=== PATIENT | male | born 1960 | race Caucasian/White ===

== ENCOUNTER → 2018-08-28 18:32 | Outpatient (CLI) | payer BC ==
[2012-01-18 09:23] VITALS: BMI 32.6
== END | disposition home or self-care (01) ==
LOC: D.LABREF 18:32
DX: R31.9 Hematuria, unspecified (principal)

== ENCOUNTER 2019-04-23 09:47 | Inpatient (IN) | payer MEDICARE ==
[~2019-04-23] VITALS: Ht 182.9 cm; Wt 110.7 kg
--- NOTE | 2019-04-23 10:50 | NUR ---
1030-AMBULATES TO ROOM WITH DOMESTIC FREIGHT FORWARDER STAFF. LEFT SIDE OF CHEECK AND LEFT EYE ARE SWOLLEN. PUS LIKE AREA SEEN TO LEFT CHEECK. WILL ADMIT. 1051-TAMERA JAY UNABLE TO GET IV, WILL ATTEMPT.
[2019-04-23 11:01] VITALS: BP 125/71; BMI 33.1
[2019-04-23 11:39] VITALS: BP 145/88
--- NOTE | 2019-04-23 11:51 | NUR ---
CALLED LAB TO COME DRAW BLOOD CULTURES SO IV ABX CAN BE STARTED.
[2019-04-23 12:08] LABS: BASOPHILS 0.6 % (0-2); EOSINOPHILS 2.1 % (0-7); HEMOGLOBIN 15.6 g/dL (13.5-17.5); IMMATURE GRANULOCYTES 0.1 % (0-5); MCH 30.1 pg (26.0-34.0); MCHC 34.7 g/dL (31.0-37.0); MCV 86.7 fL (80.0-100.0); MEAN PLATELET VOLUME 11.3 fL (7.4-10.4); MONOCYTES 7.4 % (2-11); NEUTROPHILS 60.8 % (40-80); PLATELET COUNT 176 10x3/uL (130-400); RBC 5.19 10x6/uL (4.20-6.10); RDW 13.9 % (11.5-14.5); WBC 7.2 10x3/uL (4.8-10.8)
[2019-04-23 12:26] LABS: ANION GAP 13.6 mmol/L (8-16); CALCIUM 9.1 mg/dL (8.5-10.1); CARBON DIOXIDE 25.5 mmol/L (21.0-32.0); CREATININE - SERUM 1.1 mg/dL (0.6-1.3); POTASSIUM - SERUM 4.1 mmol/L (3.5-5.1)
--- NOTE | 2019-04-23 14:14 | NUR ---
TO RADIOLOGY VIA WALKING WITH TECH.
--- NOTE | 2019-04-23 14:24 | NUR ---
BACK FROM RADIOLOGY.
[2019-04-23 16:01] VITALS: BP 153/87
--- NOTE | 2019-04-23 18:22 | NUR ---
PATIENT IS INSTRUCTED TO OBTAIN URINE SAMPLE. URINAL GIVEN.
--- NOTE | 2019-04-23 19:27 | NUR ---
URINE SENT TO LAB ORDERED.
--- NOTE | 2019-04-23 19:44 | NUR ---
PT REQUEST TO BE REMOVED FROM INFUSING IV FLUIDS AND WANTED TO WALK AROUND. PT LEFT FLOOR AT 1931 AND HAS YET TO RETURN.
[2019-04-23 19:52] LABS: APPEARANCE CLEAR (CLEAR); BILIRUBIN NEGATIVE (NEGATIVE); COLOR YELLOW (YELLOW); GLUCOSE NEGATIVE (NEGATIVE); KETONE NEGATIVE (NEGATIVE); NITRITE NEGATIVE (NEGATIVE); PROTEIN NEGATIVE (NEGATIVE); UROBILINOGEN NORMAL (NORMAL)
[2019-04-23 20:00] VITALS: BP 156/81
--- NOTE | 2019-04-23 21:54 | NUR ---
PT RETURNED TO ROOM BRIEFLY AT 2014 BUT THEN LEFT AGAIN SECURITY PAGED TO FIND PT HE HAS NOT RETURNED.
[2019-04-24] VITALS: BP 132/83
[2019-04-24 07:29] LABS: BASOPHILS 0.6 % (0-2); EOSINOPHILS 2.7 % (0-7); HEMATOCRIT 45.5 % (42.0-54.0); HEMOGLOBIN 15.6 g/dL (13.5-17.5); IMMATURE GRANULOCYTES 0.1 % (0-5); LYMPHOCYTES 27.9 % (15-50); MCH 29.4 pg (26.0-34.0); MCHC 34.3 g/dL (31.0-37.0); MCV 85.8 fL (80.0-100.0); MONOCYTES 9.9 % (2-11); NEUTROPHILS 58.8 % (40-80); PLATELET COUNT 181 10x3/uL (130-400); RDW 14.1 % (11.5-14.5); WBC 6.8 10x3/uL (4.8-10.8)
[2019-04-24 07:43] LABS: CALC OSMOLALITY 277 mosm/kg (275-300); CARBON DIOXIDE 25.4 mmol/L (21.0-32.0); CHLORIDE - SERUM 107 mmol/L (98-107); GLUCOSE 96 mg/dL (74-106); POTASSIUM - SERUM 4.3 mmol/L (3.5-5.1); SODIUM 140 mmol/L (136-145); UREA NITROGEN 10 mg/dL (7-18); eGFR NON AFRICAN AMERICAN 81 mL/min (90-120)
[2019-04-24 08:33] VITALS: Ht 182.9 cm; Wt 110.7 kg
[2019-04-24 08:36] VITALS: BP 136/80
--- NOTE | 2019-04-24 09:05 | NUR ---
AM MEDS GIVEN AT THIS TIME. PT IN BED, A/O X4, RESP EVEN AND NONALABORED ON RA. SORES NOTED TO LT SIDE OF FACE, LEFT EYE SWOLLEN. LT WRIST IV INFUSING NS AT 50CC/HR. PT DENIES ANY NEEDS AT THIS TIME. CALL LIGHT IN REACH, AT BEDSIDE, NAD NOTED, WILL CONTINUE TO MONITOR.
--- NOTE | 2019-04-24 11:23 | MORECARE ---
CASE MANAGEMENT DISCHARGE SUMMARY PATIENT: NAOMI CHIANG UNIT: [id number] ADM DATE: 04/23/19 AGE: 58 : 58 SEX: M ROOM/BED: D.1206 AUTHOR: JOSEF MCCORD PHYSICIAN: REFERRING PHYSICIAN: CRISTHIAN PEREZ DO DATE OF SERVICE: 04/24/19 Discharge Plan Patient Name: NAOMI CHIANG [facility] [facility] 1960 Planned Disposition: Home Anticipated Discharge Date: Discharge Date: Expected LOS: Initial Reviewer: [email or web address] Initial Review Date: 04/24/2019 Generated: 04/24/19 12:23 pm Patient Name: NAOMI CHIANG Page 78592 at 1123 All edits/amendments must be made on the electronic document DICTATION DATE: 04/24/19 112 CATH LAB RADIOLOGICAL TECHNOLOGIST: FRANKIE 04/24/19 1122 RPT#: [id number] DC DATE: STATUS: ADM IN [facility] [address] [place] [address] END OF REPORT
--- NOTE | 2019-04-24 11:33 | MORECARE ---
CASE MANAGEMENT DISCHARGE SUMMARY PATIENT: NAOMI CHIANG UNIT: [id number] ADM DATE: 04/23/19 AGE: 58 : 58 SEX: M ROOM/BED: D.1206 AUTHOR: SURI,DOC PHYSICIAN: REFERRING PHYSICIAN: CRISTHIAN PEREZ DO DATE OF SERVICE: 04/24/19 Discharge Plan Patient Name: NAOMI CHIANG Facility: [facility]:[place] : 1960 Planned Disposition: Home Anticipated Discharge Date: Discharge Date: Expected LOS: Initial Reviewer: [email or web address] Initial Review Date: 04/24/2019 Generated: 04/24/19 12:33 pm Comments DCP- Discharge Planning Updated by [email or web address]: Aidee Jackson on 04/24/19 10:[address] Patient Name: NAOMI CHIANG Admission Status: Elective Accout number: [id number] Admission Date: 04-23-2019 : 1960 Admission Diagnosis: Attending: CRISTHIAN PEREZ Current LOS: 1 Anticipated DC Date: Planned Disposition: Home Primary Insurance: [employer] Discharge Planning Comments: CM met with patient to complete initial dc planning assessment. CM educated patient on the CM role and verbal consent given by patient to complete assessment. CM verified patient's address, phone number, and emergency contact phone numbers. Patient lives at home alone and reports he is independent in his care. At discharge patient plans to return home and feels this is a safe discharge. CM discussed availability of home health, rehab services, and medical equipment. Patient denied known discharge needs at this time.. . CM will continue to follow and will assist as needed with dc plans/needs. Casting Wheel Operator: Aidee Jackson DCPIA - Discharge Planning Initial Assessment Updated by [email or web address]: Aidee Jackson on 04/24/19 11:24 am * Is the patient Alert and Oriented? Yes * How many steps to enter\exit or inside your home? * PCP ivania * Pharmacy [facility] * Preadmission Environment Home with Family * ADLs Independent * List name and contact numbers for known caregivers / representatives who currently or will assist patient after discharge: [phone] * Verbal permission to speak to the caregivers and representatives has been obtained from the patient. Yes * Additional services required to return to the preadmission environment? No * Can the patient safely return to the preadmission environment? Yes * Has this patient been hospitalized within the prior 30 days at any hospital? No Last DP export: 04/24/19 10:23 am Patient Name: NAOMI CHIANG Page 44462 at 1133 All edits/amendments must be made on the electronic document DICTATION DATE: 04/24/191131 SECTION WEAVER: FRANKIE 04/24/191131 RPT#: [id number] DC DATE: STATUS: ADM IN [facility] [address] [place] [address] END OF REPORT
[2019-04-24] MEDS ORDERED: LIPITOR20 MG PO (11:48)
[2019-04-24] MEDS ORDERED: METOPROLOL TART25 MG PO (11:49)
[2019-04-24] MEDS ORDERED: PLAVIX75 MG PO (11:49)
[2019-04-24] MEDS ORDERED: MUPIROCIN22 GM TOPICAL (11:50)
[2019-04-24] MEDS ORDERED: SULFAMETHOXAZOL1 TA3 PO (11:51)
[2019-04-24 12:15] VITALS: BP 130/83
--- NOTE | 2019-04-24 14:35 | NUR ---
CALLED LAB AND SPOKE WITH ALFONSO, ASKED HER IF 1330 TROUGH WAS DRAWN ON PT. ALFONSO STATED THAT SOMEHOW GOT MISSED, WILL COME DOWN TO DRAW IT JOSEPH.
[2019-04-24 15:56] VITALS: BP 128/89
--- NOTE | 2019-04-24 19:45 | NUR ---
PT NOT IN ROOM AT THIS TIME. WILL COMPLETED INITIAL ASSESSMENT WHEN PT RETURN.
--- NOTE | 2019-04-24 20:00 | NUR ---
EVENING ROUNDS COMPLETED. VSS, AAOX4, NO S/S OF DISTRESS. PIV INTACT AND PATENT NS INFUSING @ 50MLS/HR. SCAB/SORE NOTED ON LEFT EYE, PT DENIES PAIN. LEFT EYE APPEARS SWOLLEN, PT REFUSED SCD. DENIES ANY FURTHER NEEDS AT THIS TIME. WILL CPOC.
[2019-04-24 20:53] VITALS: BP 136/81
[2019-04-25 00:50] VITALS: BP 127/82
[2019-04-25 06:00] VITALS: BP 120/79
[2019-04-25 06:07] LABS: BASOPHILS 0.5 % (0-2); EOSINOPHILS 2.2 % (0-7); HEMATOCRIT 45.4 % (42.0-54.0); HEMOGLOBIN 15.7 g/dL (13.5-17.5); LYMPHOCYTES 29.4 % (15-50); MCH 29.5 pg (26.0-34.0); MCHC 34.6 g/dL (31.0-37.0); MCV 85.2 fL (80.0-100.0); MEAN PLATELET VOLUME 11.4 fL (7.4-10.4); MONOCYTES 10.6 % (2-11); NEUTROPHILS 57.3 % (40-80); PLATELET COUNT 167 10x3/uL (130-400); RBC 5.33 10x6/uL (4.20-6.10); RDW 13.9 % (11.5-14.5); WBC 6.3 10x3/uL (4.8-10.8)
[2019-04-25 06:16] LABS: CALC OSMOLALITY 277 mosm/kg (275-300); CALCIUM 9.2 mg/dL (8.5-10.1); CARBON DIOXIDE 26.2 mmol/L (21.0-32.0); CHLORIDE - SERUM 105 mmol/L (98-107); GLUCOSE 98 mg/dL (74-106); POTASSIUM - SERUM 3.9 mmol/L (3.5-5.1); SODIUM 140 mmol/L (136-145); UREA NITROGEN 11 mg/dL (7-18); eGFR NON AFRICAN AMERICAN 81 mL/min (90-120)
[2019-04-25] MEDS ORDERED: CHLORTHALIDONE25 MG PO (07:51)
[2019-04-25] MEDS ORDERED: CLEOCIN HCL300 MG PO (07:51)
[2019-04-25] MEDS ORDERED: PROTONIX40 MG PO (07:52)
[2019-04-25] MEDS ORDERED: HYTRIN1 MG PO (07:52)
[2019-04-25 07:57] VITALS: BP 122/75
--- NOTE | 2019-04-25 08:35 | NUR ---
AM MEDICATIONS GIVEN AT THIS TIME. PT REQUESTED TO BE UNHOOKED FROM IV, WANTS TO GO OUTSIDE. INFORMED PT THAT HE HAS VANCOMYCIN DUE AT THIS TIME VIA IV. PT STATED IT TAKES TOO LONG TO RUN. REFUSED TO HAVE IT STARTED AT THIS TIME.
--- NOTE | 2019-04-25 10:45 | NUR ---
IVPB ANTIBIOTIC DONE INFUSING, D/C LT WRIST IV WITH CATHETER TIP INTACT. PROVIDED VERBAL AND WRITTEN DISCHARGE TEACHING TO PT, WHO VERBALIZED UNDERSTANDING REGARDING TEACHING. PT LEFT UNIT VIA AMBULATORY WITH ALL BELONGINGS, ACCOMPANIED BY SPOUSE, NAD NOTED.
--- NOTE | 2019-04-25 11:35 | MORECARE ---
CASE MANAGEMENT DISCHARGE SUMMARY PATIENT: NAOMI CHIANG UNIT: [id number] ADM DATE: 04/23/19 AGE: 58 : 58 SEX: M ROOM/BED: D.1206 AUTHOR: SURI,DOC PHYSICIAN: REFERRING PHYSICIAN: CRISTHIAN PEREZ DO DATE OF SERVICE: 04/25/19 Discharge Plan Patient Name: NAOMI CHIANG Facility: [facility]:[place] : 1960 Planned Disposition: Home Anticipated Discharge Date: 04/25/19 Discharge Date: 04/25/2019 Expected LOS: 2 Initial Reviewer: [email or web address] Initial Review Date: 04/24/2019 Generated: 04/25/19 12:35 pm Comments DCP- Discharge Planning Updated by [email or web address]: Aidee Jackson on 04/24/19 10:[address] Patient Name: NAOMI CHIANG Admission Status: Elective Accout number: [id number] Admission Date: 04-23-2019 : 1960 Admission Diagnosis: Attending: CRISTHIAN PEREZ Current LOS: 1 Anticipated DC Date: Planned Disposition: Home Primary Insurance: [employer] Discharge Planning Comments: CM met with patient to complete initial dc planning assessment. CM educated patient on the CM role and verbal consent given by patient to complete assessment. CM verified patient's address, phone number, and emergency contact phone numbers. Patient lives at home alone and reports he is independent in his care. At discharge patient plans to return home and feels this is a safe discharge. CM discussed availability of home health, rehab services, and medical equipment. Patient denied known discharge needs at this time.. . CM will continue to follow and will assist as needed with dc plans/needs. Apartment Coordinator: Aidee Jackson DCPIA - Discharge Planning Initial Assessment Updated by [email or web address]: Aidee Jackson on 04/24/19 11:24 am * Is the patient Alert and Oriented? Yes * How many steps to enter\exit or inside your home? * PCP ivania * Pharmacy [facility] * Preadmission Environment Home with Family * ADLs Independent * List name and contact numbers for known caregivers / representatives who currently or will assist patient after discharge: [phone] * Verbal permission to speak to the caregivers and representatives has been obtained from the patient. Yes * Additional services required to return to the preadmission environment? No * Can the patient safely return to the preadmission environment? Yes * Has this patient been hospitalized within the prior 30 days at any hospital? No Last DP export: 04/24/19 10:33 am Patient Name: NAOMI CHIANG Page 01237 at 1135 All edits/amendments must be made on the electronic document DICTATION DATE: 04/25/191134 MULTIMEDIA DEVELOPER: FRANKIE 04/25/19 1135 RPT#: [id number] DC DATE:04/25/19 STATUS: DIS IN [facility] [address] [place] [address] END OF REPORT
== END 2019-04-25 10:46 | disposition home or self-care (01) | DRG 603 ==
LOC: D.M3 09:47
PROVIDERS: Internal Medicine Nephrology; ADMIT Family Medicine; ATTEND Family Medicine
DX: L03.211 Cellulitis of face (principal); I10 Essential (primary) hypertension; N40.0 Benign prostatic hyperplasia without lower urinary tract symptoms